=== PATIENT | female | born 1960 | race Caucasian/White ===

== ENCOUNTER 2019-11-11 19:21 | Emergency (ER) | payer OTHER ==
[~2019-11-11] VITALS: Ht 160 cm; Wt 66.2 kg
[~2019-11-11 19:21] MED LIST: ACYC800 PO; ALBU90I INH; ALBU90OI INH; ALPR1 PO; AMOX500 PO; ASPI325 PO; Bactrim Ds Tab1 EACH PO; CALPRATL TP; CEPH500 PO; DIPH50 PO; FAMO20 PO; FLUO10 PO; FLUT.05NI; GABA300 PO; HYDACE5 PO; HYDACE5325 PO; NAPR375 PO; OLAN10 PO; OXYACE5T PO; PENVK500 PO; PRED10 PO; RXCLIN PO; RXHYD5325 PO; RXSULTRIDS PO; SULTRIDS PO; TRAM50 PO; TRAZ50 PO; WARF5 PO; [UNRECOGNIZED DRUG - REMARK]
== END 2019-11-11 20:12 | disposition left against medical advice (07) ==
LOC: ER 19:21
DX: Z53.21 Procedure and treatment not carried out due to patient leaving prior to being seen by health care provider (principal)

== ENCOUNTER → 2019-11-30 | Outpatient (CLI) | payer OTHER ==
[~2019-11-30] MED LIST changes: +ASPI325EC PO; +Gabapentin600 MG PO; +METH40 PO; +Prozac20 MG PO; +TIOT18 INH
== END | disposition home or self-care (01) ==
LOC: LAB SHORT 08:52 → LAB 08:52 → LAB FUT 10-11 18:15
DX: R76.12 Nonspecific reaction to cell mediated immunity measurement of gamma interferon antigen response without active tuberculosis (principal)
CPT/HCPCS: 87015; 87116; 87206

== ENCOUNTER 2019-12-01 07:43 | Day surgery (SDC) | payer OTHER ==
[~2019-12-01] VITALS: Ht 160 cm; Wt 67.6 kg
--- NOTE | 2019-12-01 09:11 | NUR ---
12/01/19 0911 Sheryl Gibbs PT WITH 4 IV ATTEMPTS BY RN'S, PT TOLERATED PROCEDURES WITH MINIMAL DISTRESS. NECK IV ATTEMPTED BY MD TEMPLE WITHOUT SUCCESS. WILLARD INTO TALK WITH PT. CASE CANCELLED DUE TO LACK OF IV ACCESS. D/C TO HOME.
== END 2019-12-01 09:18 | disposition home or self-care (01) ==
LOC: ORSCSDS 07:43
DX: Z12.11 Encounter for screening for malignant neoplasm of colon (principal); Z53.9 Procedure and treatment not carried out, unspecified reason
CPT/HCPCS: J2405; J2704; J7120

== ENCOUNTER 2020-05-12 17:11 | Emergency (ER) | payer OTHER ==
[~2020-05-12] VITALS: Ht 160 cm; Wt 68.0 kg
[2020-05-12] MEDS ORDERED: Bactrim Ds Tab1 EACH PO (17:55)
== END 2020-05-12 18:04 | disposition home or self-care (01) ==
LOC: ER 17:11
DX: L02.31 Cutaneous abscess of buttock (principal); J44.9 Chronic obstructive pulmonary disease, unspecified; F32.9 Major depressive disorder, single episode, unspecified; F17.210 Nicotine dependence, cigarettes, uncomplicated; Z88.1 Allergy status to other antibiotic agents; Z79.82 Long term (current) use of aspirin; Z79.899 Other long term (current) drug therapy; Z86.718 Personal history of other venous thrombosis and embolism
CPT/HCPCS: 99282

== ENCOUNTER 2020-05-28 01:57 | Day surgery (SDC) | payer OTHER ==
[~2020-05-28 01:57] MED LIST changes: +Flovent Disku250 MCG INH
--- NOTE | 2020-05-28 10:05 | NUR ---
PT D/C'D AT 8780
== END 2020-05-28 09:09 | disposition home or self-care (01) ==
LOC: ATC 01:57
DX: Z45.2 Encounter for adjustment and management of vascular access device (principal); I87.2 Venous insufficiency (chronic) (peripheral); J44.9 Chronic obstructive pulmonary disease, unspecified; F17.210 Nicotine dependence, cigarettes, uncomplicated; Z79.82 Long term (current) use of aspirin; Z79.891 Long term (current) use of opiate analgesic; Z79.51 Long term (current) use of inhaled steroids; Z79.899 Other long term (current) drug therapy; Z88.1 Allergy status to other antibiotic agents; Z86.59 Personal history of other mental and behavioral disorders
CPT/HCPCS: 99212; C1751

== ENCOUNTER 2020-05-29 10:55 | Day surgery (SDC) | payer OTHER ==
[~2020-05-29] VITALS: Ht 160 cm; Wt 65.5 kg
--- NOTE | 2020-05-29 11:36 | NUR ---
05/29/20 1136 Sheryl Gibbs PICC LINE PLACED ON 05/28/20 FOR PROCEDURE TODAY AND BLOOD WORK DOWN THE ROAD. IV CONNECTED WITH LR AND IT RUNS WELL WITH GOOD PATENCY.
--- NOTE | 2020-05-29 12:44 | NUR ---
05/29/20 1244 Elle Moy POWERGLIDE SALINE LOCKED AND CLAMPED. SITE C/D/I.
== END 2020-05-29 12:39 | disposition home or self-care (01) ==
LOC: ORSCSDS 10:55
PROVIDERS: Student in an Organized Health Care Education/Training Program
PROC: 0DJD8ZZ Inspection of Lower Intestinal Tract, Via Natural or Artificial Opening Endoscopic (ICD-10-PCS; principal; 2020-05-29 12:00)
DX: Z12.11 Encounter for screening for malignant neoplasm of colon (principal); J44.9 Chronic obstructive pulmonary disease, unspecified; B19.20 Unspecified viral hepatitis C without hepatic coma; Z99.81 Dependence on supplemental oxygen; F17.210 Nicotine dependence, cigarettes, uncomplicated; Z79.899 Other long term (current) drug therapy
CPT/HCPCS: J2704; J7120

== ENCOUNTER → 2020-06-01 | Outpatient (CLI) | payer OTHER ==
[~2020-06-01] MED LIST changes: +CYAN500 PO; +GABAPENTIN600 MG PO; +Isoniazid300 MG; +PYRI100 PO
== END | disposition home or self-care (01) ==
LOC: LAB EV 17:33 → LAB SHORT 17:33
DX: R30.9 Painful micturition, unspecified (principal)
CPT/HCPCS: 87086

== ENCOUNTER 2020-06-04 12:20 | Day surgery (SDC) | payer OTHER ==
[~2020-06-04 12:20] MED LIST changes: -CYAN500 PO; -GABAPENTIN600 MG PO; -Isoniazid300 MG; -PYRI100 PO
[2020-06-04 16:44] LABS: Alanine Aminotransfer (ALT/SGP 33 U/L (12-78); Albumin, Blood 3.3 g/dL (3.4-5.0); Albumin/Globulin Ratio 0.6 (0.8-1.8); Alk Phos 95 U/L (50-136); Anion Gap 4 mmol/L (6-16); Aspartate Aminotrans (AST/SGOT 34 U/L (12-37); Bilirubin, Total 0.2 mg/dL (0.1-1.0); Blood Urea Nitrogen 12 mg/dL (8-24); CO2, Blood 32 mmol/L (21-32); Calcium, Blood 10.2 mg/dL (8.5-10.1); Chloride, Blood 104 mmol/L (98-108); Creatinine, Blood 0.57 mg/dL (0.40-1.00); Globulin, Blood 5.2 g/dL (2.2-4.0); Glomerular Filtration Rate >60 (60-); Glucose, Blood 101 mg/dL (70-99); Potassium, Blood 4.2 mmol/L (3.5-5.5); Sodium, Blood 140 mmol/L (136-145); Total Protein, Blood 8.5 g/dL (6.4-8.2)
[2020-06-05 09:00] LABS: HIV SCREEN 4TH GENERATION WRFX Non Reactive (Non Reactive)
== END 2020-06-04 15:54 | disposition home or self-care (01) ==
LOC: ATC 12:20
PROVIDERS: Internal Medicine
DX: Z45.2 Encounter for adjustment and management of vascular access device (principal); J44.9 Chronic obstructive pulmonary disease, unspecified; F17.210 Nicotine dependence, cigarettes, uncomplicated; Z88.1 Allergy status to other antibiotic agents; Z79.82 Long term (current) use of aspirin; Z79.51 Long term (current) use of inhaled steroids; Z79.899 Other long term (current) drug therapy
CPT/HCPCS: 80053; 86592

== ENCOUNTER → 2021-03-20 | Outpatient (CLI) | payer OTHER ==
[~2021-03-20] MED LIST changes: +CYAN500 PO; +GABAPENTIN600 MG PO; +Isoniazid300 MG; +PYRI100 PO
== END ==
LOC: LAB 18:39 → LAB SHORT 18:39
DX: N39.0 Urinary tract infection, site not specified (principal); Z88.1 Allergy status to other antibiotic agents
CPT/HCPCS: 87086

== ENCOUNTER → 2021-04-12 | Outpatient (CLI) | payer OTHER ==
[2021-04-13 14:29] LABS: Candida species (DNA Probe) Positive (NEGATIVE); G. vaginalis (DNA Probe) Positive (NEGATIVE); T. vaginalis (DNA Probe) Negative (NEGATIVE)
[2021-04-14 04:06] LABS: CHLAMYDIA TRACHOMATIS, NAA Negative (Negative)
== END | disposition home or self-care (01) ==
LOC: LAB 17:21 → LAB SHORT 17:21
PROVIDERS: Registered Nurse
DX: N89.8 Other specified noninflammatory disorders of vagina (principal); R30.0 Dysuria; R82.998 Other abnormal findings in urine; R39.89 Other symptoms and signs involving the genitourinary system
CPT/HCPCS: 87086; 87480; 87491; 87510; 87591; 87660

== ENCOUNTER → 2021-10-03 | Outpatient (CLI) | payer OTHER | END | disposition home or self-care (01) | LOC: LAB 13:15 → LAB SHORT 13:15 | DX: R30.0 Dysuria (principal); R39.89 Other symptoms and signs involving the genitourinary system; R82.90 Unspecified abnormal findings in urine | CPT/HCPCS: 87086 ==

== ENCOUNTER → 2022-02-10 | Outpatient (CLI) | payer OTHER ==
[2022-02-13 19:06] LABS: HPV 16 Negative (Negative); HPV 18 Negative (Negative); HPV OTHER HR TYPES Negative (Negative)
== END | disposition home or self-care (01) ==
LOC: LAB SHORT 17:50 → LAB 17:50
PROVIDERS: Registered Nurse
DX: Z01.419 Encounter for gynecological examination (general) (routine) without abnormal findings (principal)
CPT/HCPCS: 87624; G0123

== ENCOUNTER → 2022-02-22 | Outpatient (CLI) | payer OTHER | END | disposition home or self-care (01) | LOC: LAB SHORT 10:58 → LAB 10:58 | DX: L02.416 Cutaneous abscess of left lower limb (principal) | CPT/HCPCS: 87070; 87075; 87205 ==

== ENCOUNTER 2025-01-23 17:28 | Observation (INO) | payer OTHER ==
[~2025-01-23] VITALS: Ht 160 cm; Wt 73.3 kg
[2025-01-23 18:31] LABS: BASOPHILS ABSOLUTE AUTO 0.03 K/mm3 (0.00-0.23); BASOPHILS PERCENT AUTO 1 % (0-2); EOSINOPHILS ABSOLUTE AUTO 0.14 K/mm3 (0.00-0.68); EOSINOPHILS PERCENT AUTO 2 % (0-6); Hematocrit 45.9 % (33.0-51.0); Hemoglobin 16.1 g/dL (11.5-16.0); IMMATURE GRAN ABSOLUTE AUTO 0.02 K/mm3 (0.00-0.10); IMMATURE GRAN PERCENT AUTO 0 % (0-1); LYMPHOCYTES ABSOLUTE AUTO 1.25 K/mm3 (0.84-5.20); LYMPHOCYTES PERCENT AUTO 20 % (21-46); MONOCYTES ABSOLUTE AUTO 0.57 K/mm3 (0.16-1.47); MONOCYTES PERCENT AUTO 9 % (4-13); Mean Corpuscular HGB Conc 35.1 g/dL (31.5-36.5); Mean Corpuscular Volume 104 fL (80-100); NEUTROPHILS ABSOLUTE AUTO 4.13 K/mm3 (1.96-9.15); NEUTROPHILS PERCENT AUTO 67 % (41-73); NRBC ABSOLUTE 0.00 K/mm3 (0.00-0.02); NRBC Auto 0.0 /100 WBC (0.0-0.2); Platelet Count 240 K/mm3 (150-400); RDW Coefficient Variation 13.2 % (11.7-14.2); RDW Standard Deviation 50.5 fL (35.1-46.3)
[2025-01-23 19:04] LABS: Alanine Aminotransfer (ALT/SGP 37.0 U/L (12-78); Albumin, Blood 3.5 g/dL (3.4-5.0); Albumin/Globulin Ratio 0.7 (0.8-1.8); Anion Gap 5.0 mmol/L (3-11); Aspartate Aminotrans (AST/SGOT 41.0 U/L (12-37); Bilirubin, Total 0.3 mg/dL (0.1-1.0); Blood Urea Nitrogen 19.0 mg/dL (8-24); CO2, Blood 35.0 mmol/L (21-32); Calcium, Blood 9.9 mg/dL (8.5-10.1); Chloride, Blood 99.0 mmol/L (98-108); Creatinine, Blood 0.55 mg/dL (0.40-1.00); Globulin, Blood 5.1 g/dL (2.2-4.0); Glucose, Blood 115.0 mg/dL (70-99); Potassium, Blood 4.4 mmol/L (3.5-5.5); Sodium, Blood 135.0 mmol/L (136-145); Total Protein, Blood 8.6 g/dL (6.4-8.2)
[2025-01-23 20:41] LABS: Source, Urine Clean Catch
[2025-01-23 20:46] LABS: Bilirubin, Urine Neg (Neg); Color, Urine Yellow (P-Yellow); Glucose Qualitative, Urine Neg (Neg); Ketones, Urine Neg (Neg); Leukocyte Esterase, Urine Neg (Neg); Protein, Urine 1+ (Neg); Specific Gravity, Urine 1.010 (1.003-1.022); Urobilinogen, Urine NORM (Normal)
[2025-01-23 21:04] LABS: Prothrombin Time Results 10.5 Sec (9.7-11.5)
[2025-01-23] MEDS ORDERED: NS 1,000 ML IV SCH (21:50)
[2025-01-23] MEDS ORDERED: Ondansetron HCl 2 MG / ML 2ML Vial IV PRN (23:20)
[2025-01-23] MEDS ORDERED: NS 1,000 ML IV ONE (23:20)
[2025-01-23] MEDS ORDERED: FentaNYL Citrate 50 MCG/ML 2 ML Injection IV PRN (23:25)
[2025-01-24 00:37] LABS: BASOPHILS ABSOLUTE AUTO 0.02 K/mm3 (0.00-0.23); BASOPHILS PERCENT AUTO 0 % (0-2); EOSINOPHILS ABSOLUTE AUTO 0.16 K/mm3 (0.00-0.68); EOSINOPHILS PERCENT AUTO 3 % (0-6); Hematocrit 41.7 % (33.0-51.0); Hemoglobin 13.9 g/dL (11.5-16.0); IMMATURE GRAN ABSOLUTE AUTO 0.01 K/mm3 (0.00-0.10); IMMATURE GRAN PERCENT AUTO 0 % (0-1); LYMPHOCYTES ABSOLUTE AUTO 1.31 K/mm3 (0.84-5.20); LYMPHOCYTES PERCENT AUTO 27 % (21-46); MONOCYTES ABSOLUTE AUTO 0.60 K/mm3 (0.16-1.47); MONOCYTES PERCENT AUTO 13 % (4-13); Mean Corpuscular HGB Conc 33.3 g/dL (31.5-36.5); Mean Corpuscular Volume 105 fL (80-100); NEUTROPHILS ABSOLUTE AUTO 2.68 K/mm3 (1.96-9.15); NEUTROPHILS PERCENT AUTO 56 % (41-73); NRBC ABSOLUTE 0.00 K/mm3 (0.00-0.02); NRBC Auto 0.0 /100 WBC (0.0-0.2); Platelet Count 207 K/mm3 (150-400); RDW Coefficient Variation 13.1 % (11.7-14.2); RDW Standard Deviation 50.3 fL (35.1-46.3)
[2025-01-24 00:55] LABS: Alanine Aminotransfer (ALT/SGP 31.0 U/L (12-78); Albumin, Blood 2.8 g/dL (3.4-5.0); Albumin/Globulin Ratio 0.6 (0.8-1.8); Anion Gap 4.0 mmol/L (3-11); Aspartate Aminotrans (AST/SGOT 41.0 U/L (12-37); Bilirubin, Total 0.4 mg/dL (0.1-1.0); Blood Urea Nitrogen 18.0 mg/dL (8-24); CO2, Blood 35.0 mmol/L (21-32); Calcium, Blood 8.6 mg/dL (8.5-10.1); Chloride, Blood 103.0 mmol/L (98-108); Creatinine, Blood 0.55 mg/dL (0.40-1.00); Globulin, Blood 4.6 g/dL (2.2-4.0); Glucose, Blood 88.0 mg/dL (70-99); Potassium, Blood 4.3 mmol/L (3.5-5.5); Sodium, Blood 138.0 mmol/L (136-145); Total Protein, Blood 7.4 g/dL (6.4-8.2)
[2025-01-24] MEDS ORDERED: CATAPRES0.1 MG PO (03:24)
[2025-01-24] MEDS ORDERED: TRELEGY ELLIPT1 EAC1 INH (03:26)
[2025-01-24 04:07] VITALS: BP 140/116
[2025-01-24] MEDS ORDERED: Albuterol 2.5 MG/3 ML VIAL INH PRN (05:10)
--- NOTE | 2025-01-24 05:47 | NUR ---
SHIFT SUMMARY: "KHANH" IS A&OX4. BLOOD PRESSURE ELEVATED, PT STATES THAT SHE HAS NEVER HAD DIFFICULTY WITH ELEVATED BP IN THE PAST AND FEELS THAT, ONCE SHE IS ABLE TO GET SETTLED, IT WILL NORMALIZE. NO CHEST PAIN. LUNGS WITH BILATERAL EXPIRATORY WHEEZES. PT STATES SHE IS SUPPOSED TO USE A NEBULIZER THREE TIMES A DAY AT HOME, BUT DOES NOT. CEDS, REFUSED A NICOTINE PATCH. SHE REPORTS USING MIRALAX AT HOME AND STATES SHE HAS A BOWEL MOVEMENT ALMOST EVERY DAY. SHE ALSO ENDORSES WEIGHT GAIN OF APPROX 25 LBS AND STATES THAT HER CLOTHING DOES NOT FIT HER ANYMORE. BLE EDEMA NOTED. IV TO LEFT UPPER ARM PATENT, FLUIDS INFUSING. PT STATES SHE IS A TOUGH POKE AND THAT, EVEN WITH ULTRASOUND, IT IS VERY DIFFICULT TO START AN IV ON HER. SHE REPORTS HER APPETITE IS NORMAL AND THAT SHE IS CURRENTLY ENROLLED WITH THE [facility]. MULTIPLE SCARS, PT STATES MOST ARE THE RESULT OF ABSCESSES FROM WHEN SHE WAS USING IV RECREATIONAL DRUGS. PT PLEASANT AND COOPERATIVE. BED IN LOWEST POSITION, CALL LIGHT IN REACH.
[2025-01-24] MEDS ORDERED: Formoterol/Mometasone MDI 5/100 mcg 13 GM INH SCH (06:40)
[2025-01-24] MEDS ORDERED: Ipratropium Bromide INH 0.02% 0.5 mg/2.5ML Vial INH SCH (06:40)
--- NOTE | 2025-01-24 08:04 | NUR ---
ASSUMPTION OF CARE: THIS RN ASSUMED CARE OF PATIENT WITH ORIENTING DOC MUNROE. AWAKE DURING SHIFT CHANGE REPORT, SITTING UP IN BED. BREATHING LABORED AND DYSPNIC c ROOM AIR. PROVIDED WITH O2 @ 3LPM/NC PER PT'S BASELINE. PT HAD BREATH MINT IN MOUTH DESPITE NPO STATUS. EDUCATED ON NEED TO MAINTAIN NPO STATUS PER PROVIDER ORDER IN ANTICIPATION OF MCRP. CALL TO RT FOR BREATHING TREATMENT. FLUIDS RUNNING TO GRAVITY RUE. BED IN LOWEST POSITION. CALL LIGHT WITHIN REACH. ACUTE NEEDS MET.
[2025-01-24 08:40] VITALS: BP 127/78
[2025-01-24] MEDS ORDERED: Enoxaparin 40 MG/0.4 ML SYR SC SCH (09:00)
[2025-01-24] MEDS ORDERED: Lidocaine 4% 1 Patch TOP SCH (09:00)
[2025-01-24 15:11] VITALS: BP 116/76
--- NOTE | 2025-01-24 17:52 | NUR ---
SHIFT SUMMARY: A&OX4 THIS SHIFT. PLEASANT AND COOPERATIVE WITH CARE PROVIDED. NO ACUTE EVENTS. REMAINS ON 3L O2, WHICH PT REPORTS IS HER BASELINE. O2 SATS >90%. DENIES SHORTNESS OF BREATH. DENIES CHEST PAIN AND/OR DISCOMFORT. AMBULATES IN ROOM WITH A SBA FOR LINE MANAGEMENT, THOUGH NO IV ACCESS ORDER PLACED PER MD. LYING IN BED WITH HOB ELEVATED AT THIS TIME. BED IN THE LOWEST POSITION. CALL LT WITHIN REACH.
[2025-01-24 19:22] VITALS: BP 134/65
[2025-01-25 02:34] VITALS: BP 119/82
--- NOTE | 2025-01-25 05:17 | NUR ---
SHIFT SUMMARY NOC PT A/O X 4. PLEASANT AND COOPERATIVE WITH CARE. VSS. PT ON 3L/NC WHICH IS BASELINE SPO2 >92%, PT STILL GETS DYSPNEA WITH ANY EXERTION. PT HAS HARSH HACKING COUGH AND RECEIVED DOSE OF PRN TESSALON. PT WAITED TO TAKE BEDTIME ZYPREXA @ 0315 THIS MORNING. PT BLE STILL SWOLLEN WITH 3+ EDEMA. PT CURRENTLY RESTING WITH BED IN LOWEST POSITION, AND CALL LIGHT WITHIN REACH.
[2025-01-25 07:24] VITALS: BP 145/74
--- NOTE | 2025-01-25 08:39 | NUR ---
PT REFUSED BLOOD DRAW; DR. DHILLON NOTIFIED.
[2025-01-25] MEDS ORDERED: LIDOCORE1 EACH TOP (12:53)
--- NOTE | 2025-01-25 13:14 | NUR ---
DISCHARGE NOTE: WENT OVER DISCHARGE WITH THE PATIENT; SHE HAD NO IV, PATIENT WAS ABLE TO COLLECT OWN BELONGINGS AND LEFT WITH SO IN WHEELCHAIR. NO SIGNS OR SYMPTOMS OF DISTRESS WITH DISCHARGE.
== END 2025-01-25 13:14 | disposition home or self-care (01) ==
LOC: ER 17:28 → MEDS 17:29 → ERHOLD 17:29 → MEDS 01-24 04:00
PROVIDERS: Emergency Medicine; Student in an Organized Health Care Education/Training Program; ADMIT Internal Medicine
DX: R10.11 Right upper quadrant pain (principal); K83.8 Other specified diseases of biliary tract; J44.9 Chronic obstructive pulmonary disease, unspecified; G62.9 Polyneuropathy, unspecified; F17.210 Nicotine dependence, cigarettes, uncomplicated; R60.0 Localized edema; B18.2 Chronic viral hepatitis C; F32.A Depression, unspecified; K80.20 Calculus of gallbladder without cholecystitis without obstruction; Z86.718 Personal history of other venous thrombosis and embolism; Z79.82 Long term (current) use of aspirin; Z79.891 Long term (current) use of opiate analgesic; Z79.899 Other long term (current) drug therapy; Z88.1 Allergy status to other antibiotic agents
CPT/HCPCS: 71046; 74177; 74181; 76705; 80053; 83690; 83880; 85025; 85610; 93005; 93010; 93971; 94640; 94664; 94760; 94762; 96360-59; 99285-25; A9270; G0378; J7030; Q9967